=== PATIENT | male | born 1975 | race African-American/Black ===

== ENCOUNTER 2021-03-29 18:16 | Emergency (ER) | payer OTHER, MEDICAID ==
[~2021-03-29] VITALS: Ht 165.1 cm; Wt 59.0 kg
[2021-03-29 18:20] VITALS: BP 161/92
== END 2021-03-29 18:18 | disposition left against medical advice (07) ==
LOC: ER 18:17
DX: M54.2 Cervicalgia (principal); Z53.21 Procedure and treatment not carried out due to patient leaving prior to being seen by health care provider; Y04.8XXA Assault by other bodily force, initial encounter; Y93.89 Activity, other specified; Y92.89 Other specified places as the place of occurrence of the external cause; Y99.8 Other external cause status